=== PATIENT | female | born 1950 | race Caucasian/White ===

== ENCOUNTER 2018-12-01 11:32 | Outpatient (CLI) | payer OTHER | END 2018-12-01 11:39 | disposition home or self-care (01) | LOC: SONOGRAMA 11:32 | DX: E04.2 Nontoxic multinodular goiter (principal) ==

== ENCOUNTER 2023-12-23 07:49 | Outpatient (CLI) | payer OTHER | END 2023-12-23 07:55 | disposition home or self-care (01) | LOC: SONOGRAMA 07:49 | PROVIDERS: ATTEND Pathology Anatomic Pathology & Clinical Pathology | DX: D44.0 Neoplasm of uncertain behavior of thyroid gland (principal); E04.1 Nontoxic single thyroid nodule ==